=== PATIENT | female | born 1955 | race Caucasian/White ===

== ENCOUNTER → 2020-01-07 14:32 | Outpatient (CLI) | payer OTHER, SELFPAY ==
--- NOTE | ~2020-01-07 | MM_ITS ---
EXAMINATION: MM screening dmitry BI w sandie HISTORY: Screening mammogram TECHNIQUE: Craniocaudal and mediolateral oblique 3-D tomosynthesis images were obtained and synthetic 2-D images were generated. CAD analysis was submitted and interpreted. COMPARISON: No prior mammogram is available for comparison at this institution. BREAST PARENCHYMAL COMPOSITION: There are scattered areas of fibroglandular density. FINDINGS: There is no evidence of suspicious mass, calcification, or architectural distortion to sugg est malignancy in either breast. IMPRESSION: 1. No mammographic evidence of malignancy. 2. Recommend routine screening mammography in one year. BI-RADS Category 1: Negative Reviewed, dictated and finalized at location A.
== END ==
PROVIDERS: PCP Internal Medicine; Visit Provider Obstetrics & Gynecology Gynecology
DX: Z12.31 Encounter for screening mammogram for malignant neoplasm of breast (principal)
CPT/HCPCS: 77063; 77067

== ENCOUNTER → 2020-01-30 11:06 | Outpatient (CLI) | payer OTHER, SELFPAY ==
--- NOTE | ~2020-01-30 | DEXA_ITS ---
Bone Density Report Name: Jyoti Cano Age: 64 Sex: Female Ethnicity: White Date of : 1955 Indication: postmenopausal; screening for osteoporosis; Referring Provider: LAILA, BERTHA [place] Study: Bone densitometry was performed. Exam Date: January 30, 2020 Accession number: [id number] Bone Density: Region BMD T-score Z-score Classification AP Spine (L1-L4) 1.061 0.1 2.0 Normal Femoral Neck (Left) 0.583 -2.4 -0.8 Osteopenia Total Hip (Left) 0.764 -1.5 -0.2 Osteopenia Femoral Neck (Right) 0.564 -2.6 -1.0 Osteoporosis Total Hip (Right) 0.751 -1.6 -0.3 Osteopenia Total Hip Mean 0.758 -1.6 -0.3 Osteopenia World Health Organization criteria for BMD impression classify patients as: Normal (T-score at or above -1.0), Osteopenia (T-score between -1.0 and -2.5), or Osteoporosis (T-score at or below -2.5). 10-year Fracture Risk: FRAX not reported because: Some T-score for Spine Total or Hip Total or Femoral Neck at or below -2.5 Treated for osteoporosis Clinical Information Provided by Patient: Is being treated for osteoporosis Has used the following medications: Fosamax (i.e. alendronate), Calcium, vit D included in Calcium Patient maximum height was 60 Menopause Age: 40 No regular weight bearing exercise Does not regularly consume dairy products Drinks caffeinated beverages Onset of menses at age 11 Number of children 3 Impression: The patient has osteoporosis, based on the Right Femoral Neck T-score. Discussion: It is important to ask patients whether they are taking their medications and to encourage continued and appropriate compliance with their osteoporosis therapies to reduce fracture risk. It is also important to review their risk factors and encourage appropriate calcium and vitamin D intakes, exercise, fall prevention and other lifestyle measures. Follow-Up: Consider a repeat BMD and Vertebral Fracture Assessment (VFA) exam in 2 years or sooner if medically necessary, to reassess this patient's status. Reported by: LUIS ALBERTO on 01/30/2020 11:50:00 AM. Reviewed, dictated and finalized at location [facility]
== END ==
PROVIDERS: PCP Internal Medicine; Visit Provider Internal Medicine
DX: Z78.0 Asymptomatic menopausal state (principal); M85.89 Other specified disorders of bone density and structure, multiple sites; M81.0 Age-related osteoporosis without current pathological fracture
CPT/HCPCS: 77080

== ENCOUNTER → 2020-09-27 01:02 | Outpatient (CLI) | payer MEDICARE, SELFPAY ==
[2020-09-27 19:44] LABS: SARS-CoV-2 RNA PCR Negative
== END ==
PROVIDERS: PCP Internal Medicine; Visit Provider Internal Medicine Gastroenterology
DX: Z01.812 Encounter for preprocedural laboratory examination (principal); Z20.822 Contact with and (suspected) exposure to COVID-19
CPT/HCPCS: C9803; U0003; U0005

== ENCOUNTER 2020-10-01 01:53 | Day surgery (SDC) | payer MEDICARE, SELFPAY ==
[2020-09-19 10:20] VITALS: BMI 23.6
--- NOTE | 2020-09-30 15:35 | WPDANESEPPF ---
Anes - Initial Pre Proc Eval Procedure: Operation Date: 10/01/20 08:00 Proposed Procedures p Screening Colonoscopy - Faustino Mota MD Date/Time: 09/30/20 15:35 Surgeon: Faustino Mota MD Pre Op Diagnosis: neoplasm screening Patient Data Age: 65 Gender: F Height: 1.52 m Weight: 55 kg Allergies Allergy/AdvReac Type Severity Reaction Status Date / Time codeine Allergy Unknown Unknown Verified 09/19/20 10:18 Penicillins Allergy Unknown Unknown Verified 09/19/20 10:18 Home Medications Medication Instructions Recorded Confirmed Type alendronate 70 mg tablet 70 mg PO WEEKLY 03/24/20 09/19/20 History simvastatin 20 mg tablet 20 mg PO DAILY 03/24/20 09/19/20 History citalopram 20 mg PO DAILY 09/19/20 09/19/20 History Patient hx anesthesia problems: none Family hx anesthesia problems: none PMFSH Past Medical History Medical History (Updated 09/30/20 @ 15:36 by Tru Garcia MD) Anxiety Hyperlipidemia Osteopenia Social History Social History (Updated 03/24/20 @ 08:15 by Gloria Cardenas MA) Smoking status: Never smoker Alcohol intake: former Substance use: never Substance use type: does not use Living arrangements: alone Gender identity (if verbalized by the patient): Female Spiritual care concerns: No Anes - Eval Final PreProcedure Day of Procedure 09/30/20 15:35 Patient weight: normal Heart: regular rate and rhythm Lungs: clear to auscultation and normal air movement Airway: Mallampati scale class II Neurological: alert and oriented Last oral intake: >/= 8 hours ASA classification: II Emergent: no Anesthetic plan: proceed Anesthesia type and monitoring: general GIVS Informed Consent: The patient's anesthetic plan and its attendant risks and benefits were discussed with the patient/family/POA. Questions were solicited and answers provided to the satisfaction of the patient/family/POA.
[2020-10-01 06:43] VITALS: BP 131/75; PULSE 108; RESP 16; TEMP 36.6; O2SAT 98
[2020-10-01 06:49] VITALS: BP 131/75; PULSE 108; RESP 16; TEMP 36.6; O2SAT 98; BMI 23.1
[2020-10-01] MEDS: LACTATED RINGERS 1,000 ML 150 ML IV CONT (06:59)
--- NOTE | 2020-10-01 08:04 | PM.HPGS ---
History of Present Illness History of Present Illness Consent: Risks, benefits, and alternatives have been discussed and questions answered. Patient agrees to proceed with procedure. Chief complaint: neoplasm screening Narrative: Jyoti Cano is a 65 year old female with colon polyp 2019 Review of Systems Constitutional: Constitutional: Denies headache(s) and Denies weakness Eyes: Eyes: Denies blurry vision ENT: Reports Normal hearing present, Denies headache(s) and Denies neck pain Cardiovascular: Cardiovascular: Denies chest pain and Denies dyspnea Respiratory: Respiratory: Denies dyspnea Gastrointestinal: Gastrointestinal: Reports no additional gastrointestinal complaints Genitourinary: Genitourinary: Denies dysuria Musculoskeletal: Musculoskeletal: Denies neck pain Integumentary/Breasts: Skin/Breast: Denies dry skin Neurologic: Reports Normal hearing present, Denies headache(s) and Denies weakness Psychiatric: Psychiatric: Denies anxiety Endocrine: Endocrine: Denies change in body appearance Hematologic/Lymphatic: Hematologic/Lymphatic: Denies easy bleeding Allergic/Immunologic: Allergic/Immunologic: Denies urticaria [facility] Past Medical History Medical History (Updated 10/01/20 @ 08:04 by Faustino Mota MD) Adenomatous colon polyp Anxiety Hyperlipidemia Osteopenia Social History Social History (Updated 03/24/20 @ 08:15 by Gloria Cardenas MA) Smoking status: Never smoker Alcohol intake: former Substance use: never Substance use type: does not use Living arrangements: alone Gender identity (if verbalized by the patient): Female Spiritual care concerns: No Meds Home Medications and Allergies Home Medications Medication Instructions Recorded Confirmed Type alendronate 70 mg tablet 70 mg PO WEEKLY 03/24/20 10/01/20 History simvastatin 20 mg tablet 20 mg PO DAILY 03/24/20 10/01/20 History citalopram 20 mg PO DAILY 09/19/20 10/01/20 History Allergies Allergy/AdvReac Type Severity Reaction Status Date / Time codeine Allergy Unknown Unknown Verified 10/01/20 07:48 Penicillins Allergy Unknown Unknown Verified 10/01/20 07:48 Vital Signs Vital Signs - 24 hr 10/01/20 06:43 10/01/20 06:49 Temperature 97.9 F 97.9 F Pulse Rate 108 H 108 H Respiratory Rate 16 16 Blood Pressure 131/75 131/75 Pulse Oximetry 98 98 Exam Const: General: comfortable and no acute distress HENMT: General nose exam: Normal nares present Eyes: General: appearance normal, both eyes and all related structures Neck: Neck: no JVD Resp: Auscultation: clear to auscultation bilaterally Cardio: Rate: regular rate Rhythm: regular rhythm GI: Inspection: non-distended GI Palp: Yes Soft to palpation Skin: General skin exam: normal color Neuro: General: gait normal Speech: normal speech Extrem: General: normal to inspection Psych: Mental Status: mental status grossly normal Assessment and Plan Assessment and plan (1) Adenomatous colon polyp: Code(s): D12.6 - Benign neoplasm of colon, unspecified Status: Acute Assessment and Plan: colonoscopy
[2020-10-01 08:29] VITALS: BP 94/54; PULSE 88; RESP 14; O2SAT 98
[2020-10-01 08:39] VITALS: BP 94/54; PULSE 84; RESP 12; O2SAT 100
[2020-10-01 08:49] VITALS: BP 116/69; PULSE 87; RESP 12; O2SAT 100
== END 2020-10-01 08:53 | disposition home or self-care (01) ==
PROVIDERS: PCP Internal Medicine; Visit Provider Internal Medicine Gastroenterology
PROC: 0DJD8ZZ Inspection of Lower Intestinal Tract, Via Natural or Artificial Opening Endoscopic (ICD-10-PCS; CPT 45378; principal; 2020-10-01 08:00)
DX: Z12.11 Encounter for screening for malignant neoplasm of colon (principal); K63.5 Polyp of colon; K57.30 Diverticulosis of large intestine without perforation or abscess without bleeding; K64.8 Other hemorrhoids; K64.4 Residual hemorrhoidal skin tags; E78.5 Hyperlipidemia, unspecified; F41.9 Anxiety disorder, unspecified; M85.80 Other specified disorders of bone density and structure, unspecified site
CPT/HCPCS: 45385; 88305; C9803; J2704; J7120; U0003; U0005

== ENCOUNTER → 2021-01-16 15:01 | Outpatient (CLI) | payer MEDICARE, SELFPAY ==
--- NOTE | ~2021-01-16 | MM_ITS ---
EXAMINATION: MM screening dmitry BI w sandie HISTORY: Screening TECHNIQUE: Craniocaudal and mediolateral oblique 3-D tomosynthesis images were obtained and synthetic 2-D images were generated. CAD analysis was submitted and interpreted. COMPARISON: 01/07/2020 BREAST PARENCHYMAL COMPOSITION: There are scattered areas of fibroglandular density. FINDINGS: There is no evidence of suspicious mass, calcification, or architectural distortion to sugg est malignancy in either breast. There has been no suspicious interval change. IMPRESSION: 1. No mammographic evidence of malignancy. 2. Recommend routine screening mammography in one year. BI-RADS Category 1: Negative Reviewed, dictated and finalized at location A.
== END ==
PROVIDERS: PCP Internal Medicine; Visit Provider Nurse Practitioner
DX: Z12.31 Encounter for screening mammogram for malignant neoplasm of breast (principal)
CPT/HCPCS: 77063; 77067

== ENCOUNTER 2023-10-13 06:18 | Day surgery (SDC) | payer MEDICARE, SELFPAY ==
[2023-08-10 11:12] VITALS: BMI 25.8
[2023-09-26 11:26] VITALS: BMI 24.5
--- NOTE | 2023-10-13 06:37 | WPDANESEPPF ---
Anes - Initial Pre Proc Eval Procedure: Operation Date: 10/13/23 08:00 Proposed Procedures p Diagnostic Colonoscopy - David Liegh MD <Jason Zamorano, DO - Last Filed: 10/13/23 11:16> Date/Time: 10/13/23 06:37 <Jason Zamorano DO - Last Filed: 10/13/23 11:16> Surgeon: David Leigh MD <Jason Zamorano, DO - Last Filed: 10/13/23 11:16> Pre Op Diagnosis: History of Colon Polyps <Jason Zamorano DO - Last Filed: 10/13/23 11:16> Patient Data Age: 68 Gender: F Height: 1.52 m Weight: 57 kg <Jason Zamorano, DO - Last Filed: 10/13/23 11:16> Allergies Allergy/AdvReac Type Severity Reaction Status Date / Time codeine Allergy Intermediate Difficulty Verified 10/13/23 06:40 Breathing Penicillins Allergy Intermediate Difficulty Verified 10/13/23 06:40 Breathing <Jason Zamorano DO - Last Filed: 10/13/23 11:16> Home Medications Medication Instructions Recorded Confirmed Type alendronate 70 mg tablet 70 mg PO WEEKLY 03/24/20 10/13/23 History simvastatin 20 mg tablet 20 mg PO DAILY 03/24/20 10/13/23 History citalopram 20 mg tablet 20 mg PO DAILY 09/19/20 10/13/23 History <Jason Zamorano DO - Last Filed: 10/13/23 11:16> Patient hx anesthesia problems: none <Nirmal Hoang CRNA - Last Filed: 10/13/23 07:16> Family hx anesthesia problems: none <Nirmal Hoang CRNA - Last Filed: 10/13/23 07:16> Results Review: All pre-operative results and documents have been reviewed as part of the pre-operative evaluation. <Jason Zamorano DO - Last Filed: 10/13/23 11:16> PMFSH Past Medical History Medical History: Medical History (Updated 10/13/23 @ 07:12 by David Leigh MD) Adenomatous colon polyp Anxiety Diverticulosis Hyperlipidemia Osteopenia <Jason Zamorano DO - Last Filed: 10/13/23 11:16> Social History Social History: Social History Smoking status: Never smoker Alcohol intake: never Substance use: never Substance use type: does not use Living arrangements: with family Gender identity (if verbalized by the patient): Female Spiritual care concerns: No <Jason Zamorano DO - Last Filed: 10/13/23 11:16> Anes - Eval Final PreProcedure Day of Procedure 10/13/23 06:37 <Jason Zamorano DO - Last Filed: 10/13/23 11:16> Heart: regular rate and rhythm <Nirmal Hoang CRNA - Last Filed: 10/13/23 07:16> Lungs: clear to auscultation and normal air movement <Nirmal Hoang CRNA - Last Filed: 10/13/23 07:16> Airway: Mallampati scale class II <Nirmal Hoang CRNA - Last Filed: 10/13/23 07:16> Neurological: alert and oriented <Nirmal Hoang CRNA - Last Filed: 10/13/23 07:16> Last oral intake: >/= 8 hours <Nirmal Hoang CRNA - Last Filed: 10/13/23 07:16> ASA classification: II <Nirmal Hoang CRNA - Last Filed: 10/13/23 07:16> Emergent: no <Nirmal Hoang CRNA - Last Filed: 10/13/23 07:16> Anesthetic plan: proceed <Nirmal Hoang CRNA - Last Filed: 10/13/23 07:16> Anesthesia type and monitoring: general <Nirmal Hoang CRNA - Last Filed: 10/13/23 07:16> Results Review: All pre-operative results and documents have been reviewed as part of the pre-operative evaluation. <Jason Zamorano DO - Last Filed: 10/13/23 11:16> Informed Consent: The patient's anesthetic plan and its attendant risks and benefits were discussed with the patient/family/POA. Questions were solicited and answers provided to the satisfaction of the patient/family/POA. <Jason Zamorano, - Last Filed: 10/13/23 11:16>
[2023-10-13 06:42] VITALS: BP 128/75; PULSE 100; RESP 16; TEMP 37.2; O2SAT 98
[2023-10-13] MEDS: LACTATED RINGERS 1,000 ML 150 ML IV CONT (06:53)
--- NOTE | 2023-10-13 07:10 | PM.HPGS ---
History of Present Illness History of Present Illness Consent: Risks, benefits, and alternatives have been discussed and questions answered. Patient agrees to proceed with procedure. Chief complaint: History of Colon Polyps Narrative: Jyoti Cano is a 68 year old female colonoscopy. Patient was found to have several colon polyps at time of last colonoscopy 3 years ago. Her current weight appetite and bowel movements are normal. Patient denies abdominal pain. Family history is significant that her sister had colon cancer. Review of Systems Review of Systems: All systems reviewed & are unremarkable except as noted in HPI and below PMFSH Past Medical History Medical History (Updated 10/13/23 @ 07:12 by David Leigh MD) Adenomatous colon polyp Anxiety Diverticulosis Hyperlipidemia Osteopenia Social History Social History (Reviewed 09/02/21 @ 10:47 by Renetta Waller [facility]) Smoking status: Never smoker Alcohol intake: never Substance use: never Substance use type: does not use Living arrangements: with family Gender identity (if verbalized by the patient): Female Spiritual care concerns: No Meds Home Medications and Allergies Home Medications Medication Instructions Recorded Confirmed Type alendronate 70 mg tablet 70 mg PO WEEKLY 03/24/20 10/13/23 History simvastatin 20 mg tablet 20 mg PO DAILY 03/24/20 10/13/23 History citalopram 20 mg tablet 20 mg PO DAILY 09/19/20 10/13/23 History Allergies Allergy/AdvReac Type Severity Reaction Status Date / Time codeine Allergy Intermediate Difficulty Verified 10/13/23 06:40 Breathing Penicillins Allergy Intermediate Difficulty Verified 10/13/23 06:40 Breathing Vital Signs Vital Signs - 24 hr 10/13/23 06:42 Temperature 98.9 F Pulse Rate 100 Respiratory Rate 16 Blood Pressure 128/75 Pulse Oximetry 98 Oxygen Delivery Room Air Exam Narrative: Physical exam reveals patient to be alert. Signs stable. HEENT exam is unremarkable. Patient is anicteric. Is are clear to auscultation and percussion. Heart is without murmur or extra sounds. Abdomen sounds are present soft nontender with no organomegaly. Digital external rectal exam normal. Assessment and Plan Assessment and plan (1) History of colon polyps: Code(s): Z86.010 - Personal history of colonic polyps Status: Acute Assessment and Plan: Patient has a history of colon polyps. For this reason surveillance colonoscopy advised intervals in the future. Further rectal will be given after endoscopy. (2) Family hx of colon cancer: Code(s): Z80.0 - Family history of malignant neoplasm of digestive organs Status: Acute Assessment and Plan: A sister has had colon cancer. Rectal follow-up colonoscopy at least every 5 years.
[2023-10-13 08:22] VITALS: BP 111/65; PULSE 82; RESP 12; O2SAT 95
[2023-10-13 08:32] VITALS: BP 102/62; PULSE 87; RESP 14; O2SAT 100
[2023-10-13 08:42] VITALS: BP 118/66; PULSE 81; RESP 14; O2SAT 100
--- NOTE | 2023-10-13 11:16 | WPDANESPN ---
Anes - Prog Note Post-Op Date/Time: 10/13/23 11:16 Cardiovascular status: normal Respiratory status: normal Airway patency: baseline Mental status: baseline Post-Op hydration status: normal Vital Signs: Last Vital Signs Temp 37.2 C 10/13/23 06:42 Pulse 81 10/13/23 08:42 Resp 14 10/13/23 08:42 BP 118/66 10/13/23 08:42 Pulse Ox 100 10/13/23 08:42 O2 Del Method Room Air 10/13/23 08:42 Pain Score (VAS): 0 I/O: Intake & Output 10/12/23 10/13/23 10/13/23 23:59 07:59 15:59 Intake Total 150 Balance 150 Post-procedural complaints: none Patient Feedback: Patient satisfied with anesthetic care. Other Findings: Patient vital signs back to baseline. Patient denies nausea and vomiting. Patient's pain under control. Patient OK for discharge.
== END 2023-10-13 08:48 | disposition home or self-care (01) ==
PROVIDERS: PCP Internal Medicine; Visit Provider Internal Medicine Gastroenterology
PROC: 0DJD8ZZ Inspection of Lower Intestinal Tract, Via Natural or Artificial Opening Endoscopic (ICD-10-PCS; CPT 45378; principal; 2023-10-13 08:00)
DX: Z86.010 Personal history of colon polyps (principal); K64.8 Other hemorrhoids
CPT/HCPCS: 45378